=== PATIENT | female | born 1945 | race Caucasian/White ===

== ENCOUNTER 2018-07-01 10:04 | Emergency (ER) | payer OTHER ==
--- OUTSIDE RECORDS SUMMARY | 2018-07-01 10:06 | XMS REPORT | Clinical Summary ---
:1945 Author Organization [facility] Address [address] [place] [address] Care Team Providers Name Role Phone Ximena Lopez DO Primary Care Provider Allergies Active Allergy Reactions Severity Noted Date Comments Diphenhydramine Hcl Other (See Comments) High 03/25/2016 Hallucination Medications Medication Sig Dispensed Refills Start Date End Date Status FOLIC ACID/MV,FE,MIN Take by mouth. 0 Active (CENTRUM ORAL) cyanocobalamin 1000 MCG Take 1,000 mcg 0 Active tablet by mouth daily. 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 HTN (hypertension) 04/09/2016 Post-operative pain 04/09/2016 Anemia 04/09/2016 Electrolyte and fluid disorder 11/19/2015 Esophageal cancer 11/15/2015 Encounters Date Type Specialty Care Team Description 04/13/2018 Hospital Encounter Radiation Oncology Jacques Quintanilla MD 03/23/2018 Hospital Encounter Radiation Oncology Jacques Quintanilla MD 03/02/2018 Hospital Encounter Radiation Oncology Jacques Quintanilla MD 02/24/2018 Orders Only Oncology Joao Malignant neoplasm ARABELLA Bedoya of esophagus, unspecified location (Primary Dx) 02/05/2018 Orders Only Oncology Elke Shepherd MA 02/03/2018 Office Visit Oncology Kory Herbert Malignant neoplasm of esophagus, unspecified location (Primary Dx); MD Marco Esophageal carcinoma 02/03/2018 Hospital Encounter Radiology Kory Herbert Malignant neoplasm MD Marco of cardio-esophageal junction 02/03/2018 Lab Lab Kory Herbert Malignant neoplasm MD Marco of cardio-esophageal junction 12/24/2017 Telephone Oncology Kory Herbert MD 12/17/2017 Telephone Oncology Kory Herbert MD 12/15/2017 Telephone Oncology Kory Herbert MD 12/11/2017 Telephone Oncology Kory Herbert MD 11/10/2017 Hospital Encounter Radiation Oncology Jacques Quintanilla MD 10/14/2017 Hospital Encounter Radiation Oncology Jacques Quintanilla MD 09/11/2017 Orders Only Oncology Joao, Malignant neoplasm ARABELLA Bedoya of cardio-esophageal junction (Primary Dx) 09/10/2017 Office Visit Oncology Kory Herbert Esophageal carcinoma MD Marco (Primary Dx) 09/10/2017 Hospital Encounter Radiology Kory Herbert Malignant neoplasm MD Marco of esophagus, unspecified location 09/10/2017 Lab Lab Kory Hrebert Malignant neoplasm MD Marco of esophagus, unspecified location after 06/30/2017 Family History Medical History Relation Name Comments Breast cancer Maternal Grandmother Relation Name Status Comments Maternal Grandmother Social History Tobacco Use Types Packs/Day Years Used Date Never Smoker Smokeless Tobacco: Never Used Alcohol Use Drinks/Week oz/Week Comments No Sex Assigned at Date Recorded Not on file Job Start Date Occupation Industry Not on file Not on file Not on file Travel History Travel Start Travel End No recent travel history available. Last Filed Vital Signs Vital Sign Reading Time Taken Blood Pressure 132/70 02/03/2018 1:12 PM CDT Pulse 91 02/03/2018 1:12 PM CDT Temperature 35.7 C (96.2 F) 02/03/2018 1:12 PM CDT Respiratory Rate - - Oxygen Saturation - - Inhaled Oxygen Concentration - - Weight 56.7 kg (125 lb) 02/03/2018 1:12 PM CDT Height 162.6 cm (5' 4") 02/03/2018 10:21 AM CDT Body Mass Index 21.46 02/03/2018 1:12 PM CDT Plan of Treatment Date Type Specialty Care Team Description 08/04/2018 Lab Lab Kory Herbert MD [address] [address] 08/04/2018 Appointment Radiology Kory Herbert MD [address] [address] 08/04/2018 Office Visit Oncology Kory Herbert MD [address] [address] Health Maintenance Due Date Last Done Comments BREAST CANCER SCREENING 1997 COLON CANCER SCREENING 1997 SHINGLES VACCINES (1 of 2) 1997 PNEUMOCOCCAL POLYSACCHARIDE VACCINE AGE 65 AND OVER 2012 PNEUMOCOCCAL-13 2012 INFLUENZA VACCINE 01/06/2018 Implants 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 Shelf Model / Identifier Expiration Serial / Date Lot Port Injctbl Smart Port Ct W/ Dtchd Silicon Cath 7.5fr - [id number] - [id number] Implantable ANGIODYNAMICS 10/05/2018 [id number] / Implanted: Qty: 1 on 11/15/2015 by Tomas Love MD [employer] [id number] / or Accessories [id number] Procedures Procedure Name Priority Date/Time Associated Comments Diagnosis TRANSFUSE RED BLOOD Routine 02/10/2018 5:[address] CHEST W CONTRAST Routine 02/03/2018 11:56 Malignant neoplasm Results for this ABDOMEN W WO CONTRAST AM CDT of procedure are in PELVIS W CONTRAST cardio-esophageal the results junction section. ZZESTIMATED GFR Routine 02/03/2018 9:35 Results for this AM CDT procedure are in the results section. HC COMPLETE BLD COUNT Routine 02/03/2018 9:35 Malignant neoplasm Results for this W/AUTO DIFF AM CDT of procedure are in cardio-esophageal the results junction section. URIC ACID LEVEL Routine 02/03/2018 9:35 Malignant neoplasm Results for this AM CDT of procedure are in cardio-esophageal the results junction section. PHOSPHORUS LEVEL Routine 02/03/2018 9:35 Malignant neoplasm Results for this AM CDT of procedure are in cardio-esophageal the results junction section. LDH Routine 02/03/2018 9:35 Malignant neoplasm Results for this AM CDT of procedure are in cardio-esophageal the results junction section. CARCINOEMBRYONIC ANTIGEN Routine 02/03/2018 9:35 Malignant neoplasm Results for this (CEA) AM CDT of procedure are in cardio-esophageal the results junction section. COMPREHENSIVE METABOLIC Routine 02/03/2018 9:35 Malignant neoplasm Results for this PANEL AM CDT of procedure are in cardio-esophageal the results junction section. GGT Routine 02/03/2018 9:35 Malignant neoplasm Results for this AM CDT of procedure are in cardio-esophageal the results junction section. CT CHEST W CONTRAST Routine 09/10/2017 10:39 Malignant neoplasm Results for this ABDOMEN W CONTRAST AM CDT of esophagus, procedure are in PELVIS W CONTRAST unspecified the results location section. ESTIMATED GFR Routine 09/10/2017 9:48 Results for this AM CDT procedure are in the results section. POC CREATININE Routine 09/10/2017 9:48 Results for this AM CDT procedure are in the results section. ZZESTIMATED GFR Routine 09/10/2017 9:01 Results for this AM CDT procedure are in the results section. CARCINOEMBRYONIC ANTIGEN Routine 09/10/2017 9:01 Malignant neoplasm Results for this (CEA) AM CDT of esophagus, procedure are in unspecified the results location section. CBC HEMOGRAM Routine 09/10/2017 9:01 Malignant neoplasm Results for this AM CDT of esophagus, procedure are in unspecified the results location section. PHOSPHORUS LEVEL Routine 09/10/2017 9:01 Malignant neoplasm Results for this AM CDT of esophagus, procedure are in unspecified the results location section. LDH Routine 09/10/2017 9:01 Malignant neoplasm Results for this AM CDT of esophagus, procedure are in unspecified the results location section. GGT Routine 09/10/2017 9:01 Malignant neoplasm Results for this AM CDT of esophagus, procedure are in unspecified the results location section. COMPREHENSIVE METABOLIC Routine 09/10/2017 9:01 Malignant neoplasm Results for this PANEL AM CDT of esophagus, procedure are in unspecified the results location section. URIC ACID LEVEL Routine 09/10/2017 9:01 Malignant neoplasm Results for this AM CDT of esophagus, procedure are in unspecified the results location section. 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 Multiple axial images of the chest, abdomen, and pelvis were obtained following intravenous administration of iodinated contrast. Sagittal and coronal computerized reformatted images were obtained. CT imaging was performed with iterative reconstruction techniques and/or automated exposure control to reduce radiation dose. COMPARISON:To previous examination from 09/10/2017 IMPRESSION: Chest: 1. The patient is status post gastric pull-through. 2.No other hilar or mediastinal abnormality is appreciated. 3.Minimal scarring in the right lung base is present. Minimal atelectatic changes in the left lung base are noted. No worrisome parenchymal abnormality is appreciated in the lungs. Abdomen: 1. The liver and the spleen are normal in appearance. 2.Pancreas is normal in appearance. 3.A small left renal cyst is present. 4.An 8 mm calculus is noted in the lower pole of the left kidney. No evidence of hydronephrosis is present. Pelvis: 1. The appendix is normal in appearance. 2.No bowel distention is appreciated. 3.There is no evidence of pelvic mass, or fluid collection. 4.No bony destructive lesions are appreciated. 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 Multiple axial images of the chest, abdomen, and pelvis were obtained following intravenous administration of iodinated contrast. Sagittal and coronal computerized reformatted images were obtained. CT imaging was performed with iterative reconstruction techniques and/or automated exposure control to reduce radiation dose. COMPARISON: To previous examination from 09/10/2017 IMPRESSION: Chest: 1. The patient is status post gastric pull-through. 2. No other hilar or mediastinal abnormality is appreciated. 3. Minimal scarring in the right lung base is present. Minimal atelectatic changes in the left lung base are noted. No worrisome parenchymal abnormality is appreciated in the lungs. Abdomen: 1. The liver and the spleen are normal in appearance. 2. Pancreas is normal in appearance. 3. A small left renal cyst is present. 4. An 8 mm calculus is noted in the lower pole of the left kidney. No evidence of hydronephrosis is present. Pelvis: 1. The appendix is normal in appearance. 2. No bowel distention is appreciated. 3. There is no evidence of pelvic mass, or fluid collection. 4. No bony destructive lesions are appreciated. [facility]-[id number] Performing Organization Address City/[facility] Phone Number [facility] [address] [place] [address] Estimated GFR (02/03/2018 9:35 AM CDT)Only the most recent of2 resultswithin the time period is included. GFR Non Af Amer 55 (A) mL/min/1.73 m2 [facility] DEPARTMENT OF PATHOLOGY AND GENOMIC MEDICINE GFR Af Amer 66 mL/min/1.73 m2 [facility] DEPARTMENT OF Comment: PATHOLOGY AND GENOMIC Chronic kidney disease: <60 mL/min/1.73m2 MEDICINE Kidney failure: <15 mL/min/1.73m2 The estimated GFR is calculated from the IDMS-traceable Modification of Diet in Renal Disease Equation. The accuracy of the calculation is poor when the creatinine is normal. Calculated values >90 mL/min/1.73m2 are not reported. This equation has not been validated in children (<18 years), women, the elderly (>70 years), or ethnic groups other than Caucasians and Americans. Specimen Plasma specimen Performing Organization Address City/[facility]/Zipcode Phone Number [facility] DEPARTMENT OF PATHOLOGY AND [address] [place] [address] [facility] CBC with platelet and differential (02/03/2018 9:35 AM CDT) WBC 5.75 4.50 - 11.00 k/uL [facility] DEPARTMENT OF PATHOLOGY AND GENOMIC MEDICINE RBC 5.17 4.20 - 5.50 m/uL [facility] DEPARTMENT OF PATHOLOGY AND GENOMIC MEDICINE HGB 13.3 12.0 - 16.0 g/dL [facility] DEPARTMENT OF PATHOLOGY AND GENOMIC MEDICINE HCT 43.3 37.0 - 47.0 % [facility] DEPARTMENT OF PATHOLOGY AND GENOMIC MEDICINE MCV 83.8 82.0 - 100.0 fL [facility] DEPARTMENT OF PATHOLOGY AND GENOMIC MEDICINE MCH 25.7 (L) 27.0 - 34.0 pg [facility] DEPARTMENT OF PATHOLOGY AND GENOMIC MEDICINE MCHC 30.7 (L) 31.0 - 37.0 g/dL [facility] DEPARTMENT OF PATHOLOGY AND GENOMIC MEDICINE RDW - SD 46.6 37.0 - 55.0 fL [facility] DEPARTMENT OF PATHOLOGY AND GENOMIC MEDICINE MPV 11.5 8.8 - 13.2 fL [facility] DEPARTMENT OF PATHOLOGY AND GENOMIC MEDICINE Platelet count 151 150 - 400 k/uL [facility] DEPARTMENT OF PATHOLOGY AND GENOMIC MEDICINE Nucleated RBC 0.00 /100 WBC [facility] DEPARTMENT OF PATHOLOGY AND GENOMIC MEDICINE Neutrophils 74.2 (H) 39.0 - 69.0 % [facility] DEPARTMENT OF PATHOLOGY AND GENOMIC MEDICINE Lymphocytes 13.0 (L) 25.0 - 45.0 % [facility] DEPARTMENT OF PATHOLOGY AND GENOMIC MEDICINE Monocytes 9.4 0.0 - 10.0 % [facility] DEPARTMENT OF PATHOLOGY AND GENOMIC MEDICINE Eosinophils 2.4 0.0 - 5.0 % [facility] DEPARTMENT OF PATHOLOGY AND GENOMIC MEDICINE Basophils 0.7 0.0 - 1.0 % [facility] DEPARTMENT OF PATHOLOGY AND GENOMIC MEDICINE Immature granulocytes 0.3Comment: 0.0 - 1.0 % [facility] DEPARTMENT OF "Immature PATHOLOGY AND GENOMIC granulocytes" MEDICINE (promyelocytes, myelocytes, metamyelocytes) Specimen Blood Performing Organization Address [facility] Services[facility]ofl Phone Number [facility] DEPARTMENT OF PATHOLOGY AND [address] [place] [address] Uric acid level (02/03/2018 9:35 AM CDT)Only the most recent of2 resultswithin the time period is included. Uric acid 3.1 2.4 - 5.7 mg/dL [facility] DEPARTMENT OF PATHOLOGY AND GENOMIC MEDICINE Specimen Plasma specimen Performing Organization Address City/[facility] Servicescode Phone Number [facility] DEPARTMENT OF PATHOLOGY AND [address] [place], [place] [id number] [facility] Phosphorus level (02/03/2018 9:35 AM CDT)Only the most recent of2 resultswithin the time period is included. Phosphorus 2.9 2.4 - 4.5 mg/dL [facility] DEPARTMENT OF PATHOLOGY AND GENOMIC MEDICINE Specimen Plasma specimen Performing Organization Address [facility] Phone Number [facility] DEPARTMENT OF PATHOLOGY AND [address] [place], [place] [phone] [place] [address] LDH (02/03/2018 9:35 AM CDT)Only the most recent of2 resultswithin the time period is included. LDH 161 87 - 225 U/L [facility] DEPARTMENT OF PATHOLOGY AND GENOMIC MEDICINE Specimen Plasma specimen Performing Organization Address [facility] Phone Number [facility] DEPARTMENT OF PATHOLOGY AND [address] [place] [address] GGT (02/03/2018 9:35 AM CDT)Only the most recent of2 resultswithin the time period is included. GGT 80 (H) 0 - 39 U/L [facility] DEPARTMENT OF PATHOLOGY AND GENOMIC MEDICINE Specimen Plasma specimen Performing Organization Address [facility] Phone Number [facility] DEPARTMENT OF PATHOLOGY AND [address] [place] [address] Carcinoembryonic antigen (CEA) (02/03/2018 9:35 AM CDT)Only the most recent of2 resultswithin the time period is included. CEA 2.4 0.0 - 3.8 ng/mL [facility] DEPARTMENT OF PATHOLOGY Comment: AND [facility] MEDICINE Reference range for heavy smokers:0.0 - 5.5 ng/mL The RADHA Willard 8000 CEA immunoassay was used. Results obtained with different assay methods or kits should not be used interchangeably and may be different. Specimen Serum Performing Organization Address [facility] Phone Number [facility] DEPARTMENT OF PATHOLOGY AND [address] [place] [address] Comprehensive metabolic panel (02/03/2018 9:35 AM CDT)Only the most recent of2 resultswithin the time period is included. Sodium 140 135 - 148 mEq/L [facility] DEPARTMENT OF PATHOLOGY AND GENOMIC MEDICINE Potassium 4.1 3.5 - 5.0 mEq/L [facility] DEPARTMENT OF PATHOLOGY AND GENOMIC MEDICINE Chloride 103 98 - 112 mEq/L [facility] DEPARTMENT OF PATHOLOGY AND GENOMIC MEDICINE CO2 25 24 - 31 mEq/L [facility] DEPARTMENT OF PATHOLOGY AND GENOMIC MEDICINE Anion gap 12@ANIO 7 - 15 mEq/L [facility] DEPARTMENT OF PATHOLOGY AND GENOMIC MEDICINE BUN 16 8 - 23 mg/dL [facility] DEPARTMENT OF PATHOLOGY AND GENOMIC MEDICINE Creatinine 1.0 (H) 0.5 - 0.9 mg/dL [facility] DEPARTMENT OF PATHOLOGY AND GENOMIC MEDICINE Glucose 96 65 - 99 mg/dL [facility] DEPARTMENT OF PATHOLOGY AND GENOMIC MEDICINE Calcium 9.8 8.8 - 10.2 mg/dL [facility] DEPARTMENT OF PATHOLOGY AND GENOMIC MEDICINE Protein 8.8 (H) 6.3 - 8.3 g/dL [facility] DEPARTMENT OF Comment: PATHOLOGY AND GENOMIC [place] 4.6-7.0 g/dL MEDICINE 1 week 4.4-7.6 g/dL 7 months-1year5.1-7.3 g/dL 1-2 years5.6-7.5 g/dL >3 years6.0-8.0 g/dL 18-150 6.3-8.3 g/dL Albumin 3.4 (L) 3.5 - 5.0 g/dL [facility] DEPARTMENT OF PATHOLOGY AND GENOMIC MEDICINE A/G ratio 0.6 (L) 0.7 - 3.8 [facility] DEPARTMENT OF PATHOLOGY AND GENOMIC MEDICINE Alkaline phosphatase 176 (H) 35 - 104 U/L [facility] DEPARTMENT OF PATHOLOGY AND GENOMIC MEDICINE AST 34 10 - 35 U/L [facility] DEPARTMENT OF PATHOLOGY AND GENOMIC MEDICINE ALT 20 5 - 50 U/L [facility] DEPARTMENT OF PATHOLOGY AND GENOMIC MEDICINE Total bilirubin 0.6 0.0 - 1.2 mg/dL [facility] DEPARTMENT OF PATHOLOGY AND GENOMIC MEDICINE Specimen Plasma specimen Performing Organization Address City/State/Zipcode Phone Number [facility] DEPARTMENT OF PATHOLOGY AND [address] [place] [address] [facility] CT Chest W Contrast Abdomen W Contrast Pelvis W Contrast (09/10/2017 10:39 AM CDT) Narrative Performed At PROCEDURE:CT CHEST W CONTRAST ABDOMEN W CONTRAST PELVIS W CONTRAST RADIANT CLINICAL HISTORY:C15.9 Malignant neoplasm of esophagusunspecified, ca esophagus COMPARISON:May 21, 2017 TECHNIQUE: Contiguous 5 mm axial images were obtained of the lung apices to the pubic symphysis following injection of intravenous iodinated contrast media without adverse reaction on a multidetector CT scanning using helical scanning technique followed by 2-D sagittal and coronal reconstruction.Oral contrast was given without adverse reaction.. The dose length product for this procedure was 591 mGy-cm. CT imaging was performed with iterative reconstruction technique and/or automated exposure control to reduce radiation dose. FINDINGS: CT CHEST- 1. Lung parenchymal window settings demonstrate persistent linear scarring is noted in the right lower lobe unchanged. No lung parenchymal nodules or masses are identified. Minimal bronchiectasis is present in the upper lobes. 2. Mediastinal window settings demonstrate no supraclavicular, axillary, or hilar lymphadenopathy is seen. A precarinal lymph node is present and measures 2 cm x 1.3 cm. A few subcentimeter mediastinal lymph nodes are seen. Dilatation of the esophagus with the filling defects are noted with the distention extending to the GE junction. The esophagus is slightly more distended than on the prior exam. Surgical lexis are seen around the distal esophagus consistent with the distal esophagectomy and gastric pull-through. The heart is enlarged as before. No pericardial effusion is seen. No pleural effusions are noted. 3. Sagittal and coronal reconstructions demonstrate no additional abnormality. 4. Bone window settings demonstrate no osteolytic or osteoblastic lesions. CT ABDOMEN- 1. The attenuation of the liver is decreased relative to that of the spleen consistent with diffuse fatty infiltration. No focal lesions are identified in the liver. A cortical cyst is seen in the lateral aspect of lower pole of left kidney and measures 1.9 cm diameter. Multiple clustered calculi are seen in the lower pole of left kidney with the largest calculus measuring 8.4 mm x 4.7 mm. Bilateral UP junction narrowing is seen. Otherwise, no abnormality of the intra-abdominal solid organs is seen. 2. The opacified small bowel is unremarkable. No dilatation or wall thickening is seen. The colon is not opacified. No dilatation or paracolic inflammation is seen. No dilatation of the small or large bowel is seen. Few diverticula are present in the sigmoid colon. No evidence of acute diverticulitis is seen. The appendix isvisualized and normal. 3. No retroperitoneal lymphadenopathy, mesenteric masses, or intra-abdominal fluid collections are seen. 4. No abnormality of the aorta or IVC is seen. The gallbladderis surgically absent 5. Sagittal and coronal reconstructions demonstrate no additional abnormality. CT PELVIS- 1. No pelvic masses, fluid collections, or lymphadenopathy is seen. No inguinal lymphadenopathy is noted. 2. Bone window settings demonstrate small bone islands in the left sacrum and posterior left iliac bone. These were present on the prior examination. IMPRESSION: Abnormal study. Slight interval distention of the esophagus compared to the prior examination and could be related to reflux. Otherwise unchanged. No evidence of metastatic disease to the chest, abdomen, or pelvis. Persistent nonobstructing cluster of left lower pole renal calculi some of which could be new. [facility]-[id number] . Procedure Note Hm Interface, Radiology Results Incoming - 09/10/2017 11:14 AM CDT PROCEDURE: CT CHEST W CONTRAST ABDOMEN W CONTRAST PELVIS W CONTRAST CLINICAL HISTORY: C15.9 Malignant neoplasm of esophagus unspecified, ca esophagus COMPARISON: May 21, 2017 TECHNIQUE: Contiguous 5 mm axial images were obtained of the lung apices to the pubic symphysis following injection of intravenous iodinated contrast media without adverse reaction on a multidetector CT scanning using helical scanning technique followed by 2-D sagittal and coronal reconstruction.Oral contrast was given without adverse reaction.. The dose length product for this procedure was 591 mGy-cm. CT imaging was performed with iterative reconstruction technique and/or automated exposure control to reduce radiation dose. FINDINGS: CT CHEST- 1. Lung parenchymal window settings demonstrate persistent linear scarring is noted in the right lower lobe unchanged. No lung parenchymal nodules or masses are identified. Minimal bronchiectasis is present in the upper lobes. 2. Mediastinal window settings demonstrate no supraclavicular, axillary, or hilar lymphadenopathy is seen. A precarinal lymph node is present and measures 2 cm x 1.3 cm. A few subcentimeter mediastinal lymph nodes are seen. Dilatation of the esophagus with the filling defects are noted with the distention extending to the GE junction. The esophagus is slightly more distended than on the prior exam. Surgical lexis are seen around the distal esophagus consistent with the distal esophagectomy and gastric pull-through. The heart is enlarged as before. No pericardial effusion is seen. No pleural effusions are noted. 3. Sagittal and coronal reconstructions demonstrate no additional abnormality. 4. Bone window settings demonstrate no osteolytic or osteoblastic lesions. CT ABDOMEN- 1. The attenuation of the liver is decreased relative to that of the spleen consistent with diffuse fatty infiltration. No focal lesions are identified in the liver. A cortical cyst is seen in the lateral aspect of lower pole of left kidney and measures 1.9 cm diameter. Multiple clustered calculi are seen in the lower pole of left kidney with the largest calculus measuring 8.4 mm x 4.7 mm. Bilateral UP junction narrowing is seen. Otherwise, no abnormality of the intra-abdominal solid organs is seen. 2. The opacified small bowel is unremarkable. No dilatation or wall thickening is seen. The colon is not opacified. No dilatation or paracolic inflammation is seen. No dilatation of the small or large bowel is seen. Few diverticula are present in the sigmoid colon. No evidence of acute diverticulitis is seen. The appendix is visualized and normal. 3. No retroperitoneal lymphadenopathy, mesenteric masses, or intra-abdominal fluid collections are seen. 4. No abnormality of the aorta or IVC is seen. The gallbladder is surgically absent 5. Sagittal and coronal reconstructions demonstrate no additional abnormality. CT PELVIS- 1. No pelvic masses, fluid collections, or lymphadenopathy is seen. No inguinal lymphadenopathy is noted. 2. Bone window settings demonstrate small bone islands in the left sacrum and posterior left iliac bone. These were present on the prior examination. IMPRESSION: Abnormal study. Slight interval distention of the esophagus compared to the prior examination and could be related to reflux. Otherwise unchanged. No evidence of metastatic disease to the chest, abdomen, or pelvis. Persistent nonobstructing cluster of left lower pole renal calculi some of which could be new. [facility]-[id number] . Performing Organization Address City/[facility]/Zipcode Phone Number [facility] [address] [place] [address] Estimated GFR (09/10/2017 9:48 AM CDT) GFR Non Af Amer 62 mL/min/1.73 m2 [facility] DEPARTMENT OF PATHOLOGY AND GENOMIC MEDICINE GFR Af Amer 75 mL/min/1.73 m2 [facility] DEPARTMENT OF Comment: PATHOLOGY AND GENOMIC Chronic kidney disease: <60 mL/min/1.73m2 MEDICINE Kidney failure: <15 mL/min/1.73m2 The estimated GFR is calculated from the IDMS-traceable Modification of Diet in Renal Disease Equation. The accuracy of the calculation is poor when the creatinine is normal. Calculated values >90 mL/min/1.73m2 are not reported. This equation has not been validated in children (<18 years), women, the elderly (>70 years), or ethnic groups other than Caucasians and Americans. Specimen Blood Performing Organization Address City/[facility]/Zipcode Phone Number [facility] DEPARTMENT OF PATHOLOGY AND [address] [place] [address] [facility] POC creatinine (09/10/2017 9:48 AM CDT) POC creatinine 0.9 0.5 - 0.9 mg/dl [facility] DEPARTMENT OF PATHOLOGY Comment: AND [employer] MEDICINE Meter ID: [id number] Drawer Waxer: Micah Sheikh Specimen Blood Performing Organization Address City/State/Zipcode Phone Number [facility] DEPARTMENT OF PATHOLOGY AND [address] [place] [address] GENOMIC MEDICINE CBC hemogram (09/10/2017 9:01 AM CDT) WBC 5.28 4.50 - 11.00 k/uL [facility] DEPARTMENT OF PATHOLOGY AND GENOMIC MEDICINE RBC 5.06 4.20 - 5.50 m/uL [facility] DEPARTMENT OF PATHOLOGY AND GENOMIC MEDICINE HGB 12.9 12.0 - 16.0 g/dL [facility] DEPARTMENT OF PATHOLOGY AND GENOMIC MEDICINE HCT 41.7 37.0 - 47.0 % [facility] DEPARTMENT OF PATHOLOGY AND GENOMIC MEDICINE MCV 82.4 82.0 - 100.0 fL [facility] DEPARTMENT OF PATHOLOGY AND GENOMIC MEDICINE MCH 25.5 (L) 27.0 - 34.0 pg [facility] DEPARTMENT OF PATHOLOGY AND GENOMIC MEDICINE MCHC 30.9 (L) 31.0 - 37.0 g/dL [facility] DEPARTMENT OF PATHOLOGY AND GENOMIC MEDICINE RDW - SD 48.3 37.0 - 55.0 fL [facility] DEPARTMENT OF PATHOLOGY AND GENOMIC MEDICINE MPV 11.2 8.8 - 13.2 fL [facility] DEPARTMENT OF PATHOLOGY AND GENOMIC MEDICINE Platelet count 140 (L) 150 - 400 k/uL [facility] DEPARTMENT OF PATHOLOGY AND GENOMIC MEDICINE Nucleated RBC 0.00 /100 WBC [facility] DEPARTMENT OF PATHOLOGY AND GENOMIC MEDICINE Specimen Blood Performing Organization Address City/State/Zipcode Phone Number [facility] DEPARTMENT OF PATHOLOGY AND [address] [place] [address] [employer] MEDICINE after 06/30/2017 Insurance Payer Benefit Plan / Group Subscriber ID Type Phone Address MEDICARE MEDICARE PART A AND B xxxxxxxxxx Medicare [place], [place] [employer] AND xxxxxxxxx Commercial CASUALTY CASUALTY Advance Directives Patient has advance care planning documents on file. For more information, please contact:Eros Helton[address] [place] [address]
[2018-07-01 11:57] LABS: Absolute Lymphocytes (CBC) 0.7 K/uL (0.7-4.9); Absolute Monocytes 0.8 K/uL (0.1-1.3); Absolute Neutrophil 5.5 K/uL (1.8-8.0); Basophils % 0.3 % (0-1.3); Eosinophils % 1.1 % (0-4.4); Hematocrit 40.9 % (36.0-45.0); Lymphocytes % 9.8 % (15.3-44.8); MPV 9.3 fL (7.6-11.3); Monocytes % 11.1 % (3.3-12.3); RBC Red Blood Cell Count 5.18 M/uL (3.86-4.86)
[2018-07-01 12:10] LABS: Albumin 3.1 g/dL (3.4-5.0); Bilirubin Direct 0.2 mg/dL (0-0.2); Bilirubin Total 0.6 mg/dL (0.2-1.0); Potassium 3.6 mmol/L (3.5-5.1); Protein, Total 8.5 g/dL (6.4-8.2)
[2018-07-01] MEDS ORDERED: NA CHLORIDE 0.9% 250 ML ONE (12:24)
--- NOTE | 2018-07-01 12:50 | RAD REPORT ---
EXAM DESCRIPTION: CTAbdomen Pelvis W Contrast - 07/01/2018 12:36 pm CLINICAL HISTORY: Abdominal pain. VAGINAL BLEEDING COMPARISON: No comparisonsChest Abdomen Pelvis W Cont dated 11/06/2016 TECHNIQUE: Biphasic CT imaging of the abdomen and pelvis was performed with 100 ml non-ionic IV cont rast. All CT scans are performed using dose optimization technique as appropriate and may include automated exposure control or mA/KV adjustment according to patient size. FINDINGS: Mild linear opacities in both lung bases most compatible with subsegmental atelectasis.Mod erate hiatal hernia is present. The liver demonstrates no focal mass or biliary dilatation. Cholecystectomy clips are seen. The splee n is mildly prominent. Mild pancreatic atrophy is seen. The adrenal glands are normal. A cyst is pres ent in the inferolateral cortex of left kidney measuring 20 mm. Small inferior left renal calculi are seen the largest measuring about 6-7 mm without hydronephrosis. No bowel obstruction, free air, free fluid or abscess. The appendix is normal. No evidence of signi ficant lymphadenopathy. No suspicious bony findings. IMPRESSION: No acute intra-abdominal or pelvic finding. Left nephrolithiasis.
[2018-07-01 13:34] LABS: Urine Blood TRACE (NEG); Urine Glucose TRACE (NEG); Urine Protein 1+ (NEG)
--- NOTE | 2018-07-01 13:39 | EDPHYS ---
Physician Documentation [facility] Name: Vera Parker Age: 73 yrs Sex: Female : 1945 Arrival Date: 07/01/2018 Time: 10:06 Bed 8 Private MD: Ximena Lopez H ED Physician Fab Torres HPI: 07/01 18:08 This 73 yrs old Female presents to ER via Ambulatory with complaints of kdr Vaginal Bleeding, Weakness. 18:08 The patient presents with vaginal bleeding that is light. kdr 18:10 Onset: The symptoms/episode began/occurred yesterday. Modifying factors: The symptoms kdr are alleviated by nothing, the symptoms are aggravated by nothing. Historical: - Allergies: 10:35 Benadryl (Hallucinations); tw2 - Home Meds: 10:35 None [Active]; tw2 - PMHx: 10:35 esophageal cancer; Hypertension; Chemotherapy started December,; Radiation tx tw2 completed January 25, 2016; - PSHx: 10:35 Ablation (uterine); G-tube (removed Jun 2016); J-tube (removed Jun 2016); Port-a-cath tw2 (Jun 2016); Lump removed from breast; - Immunization history:: Adult Immunizations. - Social history:: Smoking status: . - Ebola Screening: : Patient denies travel to an Ebola-affected area in the 21 days before illness onset. ROS: 18:39 Constitutional: Negative for fever, chills, and weight loss, Eyes: Negative for injury, kdr pain, redness, and discharge, ENT: Negative for injury, pain, and discharge, Neck: Negative for injury, pain, and swelling, Cardiovascular: Negative for chest pain, palpitations, and edema, Respiratory: Negative for shortness of breath, cough, wheezing, and pleuritic chest pain, Abdomen/GI: Negative for abdominal pain, nausea, vomiting, diarrhea, and constipation, Back: Negative for injury and pain, MS/Extremity: Negative for injury and deformity, Neuro: Negative for headache, weakness, numbness, tingling, and seizure activity. Psych: Negative for depression, anxiety, suicide ideation, homicidal ideation, and hallucinations, Allergy/Immunology: Negative for hives, rash, and allergies, Endocrine: Negative for neck swelling, polydipsia, polyuria, polyphagia, and marked weight changes, Hematologic/Lymphatic: Negative for swollen nodes, abnormal bleeding, and unusual bruising. 18:39 : Positive for vaginal bleeding. 18:39 Skin: Positive for Indurated tissue on right medial buttock. Exam: 18:39 Constitutional: This is a well developed, well nourished patient who is awake, alert, kdr and in no acute distress. Head/Face: Normocephalic, atraumatic. Eyes: Pupils equal round and reactive to light, extra-ocular motions intact. Lids and lashes normal. Conjunctiva and sclera are non-icteric and not injected. Cornea within normal limits. Periorbital areas with no swelling, redness, or edema. Neck: Trachea midline, no thyromegaly or masses palpated, and no cervical lymphadenopathy. Supple, full range of motion without nuchal rigidity, or vertebral point tenderness. No Meningismus. Chest/axilla: Normal chest wall appearance and motion. Nontender with no deformity. No lesions are appreciated. Cardiovascular: Regular rate and rhythm with a normal S1 and S2. No gallops, murmurs, or rubs. Normal PMI, no JVD. No pulse deficits. Respiratory: Lungs have equal breath sounds bilaterally, clear to auscultation and percussion. No rales, rhonchi or wheezes noted. No increased work of breathing, no retractions or nasal flaring. Abdomen/GI: Soft, non-tender, with normal bowel sounds. No distension or tympany. No guarding or rebound. No evidence of tenderness throughout. Back: No spinal tenderness. No costovertebral tenderness. Full range of motion. Female : Normal external genitalia. 18:39 : Pelvic Exam: External exam: is normal, Speculum exam: normal findings, no bleeding is noted, the nurse was present for the exam. 18:39 Skin: abscess, that is small, of the right gluteus qian - at cleft adjacent to rectum but not in the rectum. Vital Signs: 10:30 Pulse 128; tw2 10:31 BP 122 / 77; Pulse 116; Resp 18; Temp 98.2(O); Pulse Ox 97% on R/A; Weight 56.25 kg tw2 (R); Height 5 ft. 3 in. (160.02 cm) (R); Pain 0/10; 12:29 BP 149 / 78; Pulse 98; Resp 14; Pulse Ox 99% ; bp 13:30 BP 151 / 88; Pulse 91; Resp 16; Pulse Ox 100% ; ca1 10:31 Body Mass Index 21.97 (56.25 kg, 160.02 cm) tw2 MDM: 13:39 Patient medically screened. kdr 18:39 Data reviewed: vital signs, nurses notes, lab test result(s). Counseling: I had a kdr detailed discussion with the patient and/or guardian regarding: the historical points, exam findings, and any diagnostic results supporting the discharge/admit diagnosis, lab results, radiology results, the need for outpatient follow up. 07/01 11:11 Order name: Basic Metabolic Panel; Complete Time: 12:40 [facility] 07/01 11:11 Order name: CBC with Diff [facility] 07/01 11:11 Order name: Creatinine for Radiology; Complete Time: 12:40 [facility] 07/01 11:11 Order name: Hepatic Function; Complete Time: 12:40 [facility] 07/01 11:11 Order name: Type And Screen; Complete Time: 12:40 [facility] 07/01 11:11 Order name: Urine Culture [facility] 07/01 11:11 Order name: IV Saline Lock; Complete Time: 11:33 [facility] 07/01 11:11 Order name: Labs collected and sent; Complete Time: 11:33 [facility] 07/01 11:11 Order name: CT Abd/Pelvis - W/Contrast [facility] 07/01 11:11 Order name: Urine Dipstick-Ancillary (obtain specimen): Cath UA - clean well!; Complete kdr Time: 12:14 07/01 11:11 Order name: Pelvic Exam Setup; Complete Time: 11:32 [facility] 07/01 12:17 Order name: Urine Dipstick--Ancillary (enter results) eb Administered Medications: 11:30 Drug: NS 0.9% 250 ml Route: IV; Rate: bolus; Site: right forearm; bp 13:58 Follow up: IV Status: Completed infusion; IV Intake: 250ml ca1 Disposition: 07/01/18 13:39 Discharged to Home. Impression: Cellulitis and Abscess of the Right Buttock. - Condition is Stable. - Discharge Instructions: Skin Abscess, Opew-pu-[id number], Cellulitis, Adult, [id number]. - Prescriptions for clindamycin palmitate HCl 75 mg/5 mL Oral recon soln - take 20 milliliter by ORAL route every 6 hours; 560 milliliter. sulfamethoxazole- trimethoprim 200-40 mg/5 mL Oral Suspension - take 10 milliliter by ORAL route every 12 hours for 10 days; 200 milliliter. - Medication Reconciliation Form, Thank You Letter, Antibiotic Education form. - Follow up: Jessica, DO Ximena; When: 2 - 3 days; Reason: If symptoms return, Further diagnostic work-up, Recheck today's complaints, Continuance of care, Re-evaluation by your physician. - Problem is new. - Symptoms have improved. Signatures: Dispatcher [employer] EDMS Fab Torres MD MD kdr Nena Faye RN RN tw2 Fortunato Drake RN RN bp Johnnie, Leticia FELICIANO ca1 Corrections: (The following items were deleted from the chart) 14:26 13:39 07/01/2018 13:39 Discharged to Home. Impression: Cellulitis and Abscess of the bp Right Buttock. Condition is Stable. Forms are Medication Reconciliation Form, Thank You Letter, Antibiotic Education, Prescription Opioid Use. Follow up: Ximena Lopez; When: 2 - 3 days; Reason: If symptoms return, Further diagnostic work-up, Recheck today's complaints, Continuance of care, Re-evaluation by your physician. Problem is new. Symptoms have improved. kdr
--- NOTE | 2018-07-01 13:39 | ER ---
Nurse's Notes [facility] Name: Vera Parker Age: 73 yrs Sex: Female : 1945 Arrival Date: 07/01/2018 Time: 10:06 Bed 8 Private MD: Ximena Lopez H Diagnosis: Cellulitis and Abscess of the Right Buttock Presentation: 07/01 10:30 Presenting complaint: Patient states: i am having vaginal bleeding that started tw2 yesterday, no clots, no pain, bright red blood on my depends and bright red blood in toilet. Transition of care: patient was not received from another setting of care. Onset of symptoms was July 01, 2018. Risk Assessment: Do you want to hurt yourself or someone else? Patient reports no desire to harm self or others. Initial Sepsis Screen: Does the patient meet any 2 criteria? No. Patient's initial sepsis screen is negative. Does the patient have a suspected source of infection? No. Patient's initial sepsis screen is negative. Care prior to arrival: None. 10:30 Method Of Arrival: Ambulatory tw2 10:30 Acuity: YEYO 3 tw2 Triage Assessment: 10:35 General: Appears in no apparent distress. well groomed, Behavior is calm, cooperative, tw2 appropriate for age. Pain: Denies pain. : Reports vaginal bleeding that is bright red. Historical: - Allergies: 10:35 Benadryl (Hallucinations); tw2 - Home Meds: 10:35 None [Active]; tw2 - PMHx: 10:35 esophageal cancer; Hypertension; Chemotherapy started December,; Radiation tx tw2 completed January 25, 2016; - PSHx: 10:35 Ablation (uterine); G-tube (removed Jun 2016); J-tube (removed Jun 2016); Port-a-cath tw2 (Jun 2016); Lump removed from breast; - Immunization history:: Adult Immunizations. - Social history:: Smoking status: . - Ebola Screening: : Patient denies travel to an Ebola-affected area in the 21 days before illness onset. Screenin:46 Abuse screen: Denies threats or abuse. Denies injuries from another. Nutritional bp screening: No deficits noted. Tuberculosis screening: No symptoms or risk factors identified. Fall Risk None identified. Assessment: 10:45 General: Appears in no apparent distress. comfortable, Behavior is calm, cooperative, bp appropriate for age. Pain: Denies pain. Neuro: Reports weakness GENERALIZED. Cardiovascular: Rhythm is sinus tachycardia. Respiratory: Airway is patent Respiratory effort is even, unlabored, Respiratory pattern is regular, symmetrical. GI: No signs and/or symptoms were reported involving the gastrointestinal system. : VAGINAL BLEEDING. : Vaginal discharge is bloody. EENT: No deficits noted. Derm: No deficits noted. Musculoskeletal: Circulation, motion, and sensation intact. Range of motion: intact in all extremities. 12:30 Reassessment: PELVIC COMPLETED, PT TO CT WITH [facility] ATTORNEY. bp 14:25 Reassessment: PT D/C HOME AMBULATORY WITH FAMILY, DX WITH ABSCESS AND CELLULITIS. bp Vital Signs: 10:30 Pulse 128; tw2 10:31 BP 122 / 77; Pulse 116; Resp 18; Temp 98.2(O); Pulse Ox 97% on R/A; Weight 56.25 kg tw2 (R); Height 5 ft. 3 in. (160.02 cm) (R); Pain 0/10; 12:29 BP 149 / 78; Pulse 98; Resp 14; Pulse Ox 99% ; bp 13:30 BP 151 / 88; Pulse 91; Resp 16; Pulse Ox 100% ; ca1 10:31 Body Mass Index 21.97 (56.25 kg, 160.02 cm) tw2 ED Course: 10:06 Patient arrived in ED. dl4 10:07 Ximena Lopez DO is Private Physician. dl4 10:31 Triage completed. tw2 10:35 Arm band placed on. tw2 10:41 Fortunato Drake, BRADEN is Primary Nurse. bp 10:45 Fab Torres MD is Attending Physician. kdr 10:46 Patient has correct armband on for positive identification. Placed in gown. Bed in low bp position. Call light in reach. Side rails up X2. Adult w/ patient. 10:53 Patient has correct armband on for positive identification. Placed in gown. Bed in low mh5 position. Call light in reach. Side rails up X 1. Adult w/ patient. Warm blanket given. school lunch monitor on. Pulse ox on. NIBP on. 11:28 Inserted saline lock: 22 gauge in right forearm, using aseptic technique. Blood bp collected. 12:08 Urine collected: straight cath specimen, clear, Amount Returned: 60mL. dh3 12:36 CT Abd/Pelvis - W/Contrast In Process Unspecified. EDMS 13:38 Jessica MacarenaOlga LidiaanDO kenia is Referral Physician. kdr 13:58 No provider procedures requiring assistance completed. IV discontinued, intact, ca1 bleeding controlled, No redness/swelling at site. Pressure dressing applied. Administered Medications: 11:30 Drug: NS 0.9% 250 ml Route: IV; Rate: bolus; Site: right forearm; bp 13:58 Follow up: IV Status: Completed infusion; IV Intake: 250ml ca1 Intake: 13:58 IV: 250ml; Total: 250ml. ca1 Outcome: 13:39 Discharge ordered by MD. kdr 14:25 Discharged to home ambulatory, with family. bp 14:25 Condition: stable 14:25 Discharge instructions given to patient, family, Instructed on discharge instructions, follow up and referral plans. medication usage, Demonstrated understanding of instructions, follow-up care, medications, Prescriptions given X 2. 14:26 Patient left the ED. bp Signatures: Dispatcher [employer] EDMS Fab Torres MD MD kdr Nena Faye, RN RN tw2 Adriana Olmstead Varsha Howard 3 Fortunato Drake, RN RN Gurjit Rucker 4 Letciia Blair RN RN ca1
[2018-07-01 14:55] VITALS: TEMP 98.2
[2018-07-01 14:58] VITALS: BP 151/88; O2SAT 100
== END 2018-07-01 14:26 | disposition home or self-care (01) ==
LOC: ER 10:04
DX: L03.317 Cellulitis of buttock (principal); I10 Essential (primary) hypertension; Z85.01 Personal history of malignant neoplasm of esophagus; Z88.8 Allergy status to other drugs, medicaments and biological substances
CPT/HCPCS: 36415; 74177; 80048; 80076; 81003; 85025; 86850; 86900; 86901; 87086; 96360; 96361; 99284; Q9967; 87088

== ENCOUNTER 2018-07-09 19:20 | Emergency (ER) | payer OTHER ==
--- OUTSIDE RECORDS SUMMARY | 2018-07-09 19:23 | XMS REPORT | Clinical Summary ---
:1945 Author Organization [facility] Address [address] [place] [address] Care Team Providers Name Role Phone Ximena [...] of cardio-esophageal junction 12/24/2017 Telephone Oncology Kory Herbret MD 12/17/2017 Telephone Oncology Kory Herbert MD [...] esophagus, unspecified location 09/10/2017 Lab Lab Kory Herbert Malignant neoplasm MD Marco of esophagus, unspecified location after 07/08/2017 Family History Medical History Relation Name Comments [...] Lab Lab Kory Herbert MD [address] [address] 08/04/2018 Appointment Radiology Kory Herbert MD [address] [address] 08/04/2018 Office Visit Oncology Kory Herbert MD [address] [address] Health Maintenance Due Date Last Done Comments BREAST CANCER SCREENING 1997 COLON CANCER SCREENING 1997 SHINGLES VACCINES (1 of 2) 1997 PNEUMOCOCCAL POLYSACCHARIDE VACCINE AGE 65 AND OVER 2012 PNEUMOCOCCAL-13 2012 INFLUENZA VACCINE 01/06/2018 Implants Implanted Type Area Junior Linux Administrator Device Shelf Model / Identifier Expiration Serial / Date Lot Port Injctbl Smart Port Ct W/ Dtchd Silicon Cath 7.5fr - [id number] - [id number] Implantable ANGIODYNAMICS 10/05/2018 [id number] / Implanted: Qty: 1 on 11/15/2015 by Tomas Love MD [employer] [id number] / or Accessories [id number] Procedures Procedure Name Priority Date/Time Associated Comments [...] in unspecified the results location section. after 07/08/2017 Results Transfuse RBC (02/10/2018 5:27 PM CDT)CT [...] collection. 4.No bony destructive lesions are appreciated. [facility]-[id number] Procedure Note Interface, Radiology Results Incoming - [...] 4. No bony destructive lesions are appreciated. [facility]-[id number] Performing Organization Address City/[facility] Phone Number [facility] [address] [place] [address] Estimated GFR (02/03/2018 9:35 AM CDT)Only the most recent of2 resultswithin the time period is included. GFR Non Af Amer 55 (A) mL/min/1.73 m2 [facility] DEPARTMENT OF PATHOLOGY AND GENOMIC MEDICINE GFR Af Amer 66 mL/min/1.73 m2 [facility] DEPARTMENT OF Comment: PATHOLOGY AND GENOMIC Chronic [...] Americans. Specimen Plasma specimen Performing Organization Address City/[facility]/Zipcode Phone Number [facility] DEPARTMENT OF PATHOLOGY AND [address] [place] [address] [facility] CBC with platelet and differential (02/03/2018 9:35 AM CDT) WBC 5.75 4.50 - 11.00 k/uL [facility] DEPARTMENT OF PATHOLOGY AND GENOMIC MEDICINE RBC 5.17 4.20 - 5.50 m/uL [facility] DEPARTMENT OF PATHOLOGY AND GENOMIC MEDICINE HGB 13.3 12.0 - 16.0 g/dL [facility] DEPARTMENT OF PATHOLOGY AND GENOMIC MEDICINE HCT 43.3 37.0 - 47.0 % [facility] DEPARTMENT OF PATHOLOGY AND GENOMIC MEDICINE MCV 83.8 82.0 - 100.0 fL [facility] DEPARTMENT OF PATHOLOGY AND GENOMIC MEDICINE MCH 25.7 (L) 27.0 - 34.0 pg [facility] DEPARTMENT OF PATHOLOGY AND GENOMIC MEDICINE MCHC 30.7 (L) 31.0 - 37.0 g/dL [facility] DEPARTMENT OF PATHOLOGY AND GENOMIC MEDICINE RDW - SD 46.6 37.0 - 55.0 fL [facility] DEPARTMENT OF PATHOLOGY AND GENOMIC MEDICINE MPV 11.5 8.8 - 13.2 fL [facility] DEPARTMENT OF PATHOLOGY AND GENOMIC MEDICINE Platelet count 151 150 - 400 k/uL [facility] DEPARTMENT OF PATHOLOGY AND GENOMIC MEDICINE Nucleated RBC 0.00 /100 WBC [facility] DEPARTMENT OF PATHOLOGY AND GENOMIC MEDICINE Neutrophils 74.2 (H) 39.0 - 69.0 % [facility] DEPARTMENT OF PATHOLOGY AND GENOMIC MEDICINE Lymphocytes 13.0 (L) 25.0 - 45.0 % [facility] DEPARTMENT OF PATHOLOGY AND GENOMIC MEDICINE Monocytes 9.4 0.0 - 10.0 % [facility] DEPARTMENT OF PATHOLOGY AND GENOMIC MEDICINE Eosinophils 2.4 0.0 - 5.0 % [facility] DEPARTMENT OF PATHOLOGY AND GENOMIC MEDICINE Basophils 0.7 0.0 - 1.0 % [facility] DEPARTMENT OF PATHOLOGY AND GENOMIC MEDICINE Immature granulocytes 0.3Comment: 0.0 - 1.0 % [facility] DEPARTMENT OF "Immature PATHOLOGY AND GENOMIC granulocytes" MEDICINE (promyelocytes, myelocytes, metamyelocytes) Specimen Blood Performing Organization Address [facility] Phone Number [facility] DEPARTMENT OF PATHOLOGY AND [address] [place] [address] Uric acid level (02/03/2018 9:35 AM CDT)Only the most recent of2 resultswithin the time period is included. Uric acid 3.1 2.4 - 5.7 mg/dL [facility] DEPARTMENT OF PATHOLOGY AND GENOMIC MEDICINE Specimen Plasma specimen Performing Organization Address City/[facility] Phone Number [facility] DEPARTMENT OF PATHOLOGY AND [address] [place], [place] [id number] [facility] Phosphorus level (02/03/2018 9:35 AM CDT)Only the most recent of2 resultswithin the time period is included. Phosphorus 2.9 2.4 - 4.5 mg/dL [facility] DEPARTMENT OF PATHOLOGY AND GENOMIC MEDICINE Specimen Plasma specimen Performing Organization Address [facility] Phone Number [facility] DEPARTMENT OF PATHOLOGY AND [address] [place], [place] [id number] [place] [address] LDH (02/03/2018 9:35 AM CDT)Only the most recent of2 resultswithin the time period is included. LDH 161 87 - 225 U/L [facility] DEPARTMENT OF PATHOLOGY AND GENOMIC MEDICINE Specimen Plasma specimen Performing Organization Address [facility] Phone Number [facility] DEPARTMENT OF PATHOLOGY AND [address] [place] [address] GGT (02/03/2018 9:35 AM CDT)Only the most recent of2 resultswithin the time period is included. GGT 80 (H) 0 - 39 U/L [facility] DEPARTMENT OF PATHOLOGY AND GENOMIC MEDICINE Specimen Plasma specimen Performing Organization Address [facility] Phone Number [facility] DEPARTMENT OF PATHOLOGY AND [address] [place] [address] Carcinoembryonic antigen (CEA) (02/03/2018 9:35 AM CDT)Only the most recent of2 resultswithin the time period is included. CEA 2.4 0.0 - 3.8 ng/mL [facility] DEPARTMENT OF PATHOLOGY Comment: AND [facility] MEDICINE Reference range for heavy smokers:0.0 - 5.5 ng/mL The RADHA [place] 8000 CEA immunoassay was used. Results obtained with different assay methods or kits should not be used interchangeably and may be different. Specimen Serum Performing Organization Address [facility] Phone Number [facility] DEPARTMENT OF PATHOLOGY AND [address] [place] [address] Comprehensive metabolic panel (02/03/2018 9:35 AM CDT)Only the most recent of2 resultswithin the time period is included. Sodium 140 135 - 148 mEq/L [facility] DEPARTMENT OF PATHOLOGY AND GENOMIC MEDICINE Potassium 4.1 3.5 - 5.0 mEq/L [facility] DEPARTMENT OF PATHOLOGY AND GENOMIC MEDICINE Chloride 103 98 - 112 mEq/L [facility] DEPARTMENT OF PATHOLOGY AND GENOMIC MEDICINE CO2 25 24 - 31 mEq/L [facility] DEPARTMENT OF PATHOLOGY AND GENOMIC MEDICINE Anion gap 12@ANIO 7 - 15 mEq/L [facility] DEPARTMENT OF PATHOLOGY AND GENOMIC MEDICINE BUN 16 8 - 23 mg/dL [facility] DEPARTMENT OF PATHOLOGY AND GENOMIC MEDICINE Creatinine 1.0 (H) 0.5 - 0.9 mg/dL [facility] DEPARTMENT OF PATHOLOGY AND GENOMIC MEDICINE Glucose 96 65 - 99 mg/dL [facility] DEPARTMENT OF PATHOLOGY AND GENOMIC MEDICINE Calcium 9.8 8.8 - 10.2 mg/dL [facility] DEPARTMENT OF PATHOLOGY AND GENOMIC MEDICINE Protein 8.8 (H) 6.3 - 8.3 g/dL [facility] DEPARTMENT OF Comment: PATHOLOGY AND GENOMIC [place] 4.6-7.0 g/dL MEDICINE 1 week 4.4-7.6 g/dL 7 months-1year5.1-7.3 g/dL 1-2 years5.6-7.5 g/dL >3 years6.0-8.0 g/dL 18-150 6.3-8.3 g/dL Albumin 3.4 (L) 3.5 - 5.0 g/dL [facility] DEPARTMENT OF PATHOLOGY AND GENOMIC MEDICINE A/G ratio 0.6 (L) 0.7 - 3.8 [facility] DEPARTMENT OF PATHOLOGY AND GENOMIC MEDICINE Alkaline phosphatase 176 (H) 35 - 104 U/L [facility] DEPARTMENT OF PATHOLOGY AND GENOMIC MEDICINE AST 34 10 - 35 U/L [facility] DEPARTMENT OF PATHOLOGY AND GENOMIC MEDICINE ALT 20 5 - 50 U/L [facility] DEPARTMENT OF PATHOLOGY AND GENOMIC MEDICINE Total bilirubin 0.6 0.0 - 1.2 mg/dL [facility] DEPARTMENT OF PATHOLOGY AND GENOMIC MEDICINE Specimen Plasma specimen Performing Organization Address City/State/Zipcode Phone Number [facility] DEPARTMENT OF PATHOLOGY AND [address] [place] [address] [facility] CT Chest W Contrast Abdomen W Contrast [...] calculi some of which could be new. [facility]-[id number] . Procedure Note Hm Interface, Radiology Results [...] calculi some of which could be new. [facility]-[id number] . Performing Organization Address City/[facility]/Zipcode Phone Number [facility] [address] [place] [address] Estimated GFR (09/10/2017 9:48 AM CDT) GFR Non Af Amer 62 mL/min/1.73 m2 [facility] DEPARTMENT OF PATHOLOGY AND GENOMIC MEDICINE GFR Af Amer 75 mL/min/1.73 m2 [facility] DEPARTMENT OF Comment: PATHOLOGY AND GENOMIC Chronic [...] and Americans. Specimen Blood Performing Organization Address City/[facility]/Zipcode Phone Number [facility] DEPARTMENT OF PATHOLOGY AND [address] [place] [address] [employer] POC creatinine (09/10/2017 9:48 AM CDT) POC creatinine 0.9 0.5 - 0.9 mg/dl [facility] DEPARTMENT OF PATHOLOGY Comment: AND [employer] MEDICINE Meter ID: [id number] Manager Scientific: Micah Sheikh Specimen Blood Performing Organization Address City/State/Zipcode Phone Number [facility] DEPARTMENT OF PATHOLOGY AND [address] [place] [address] GENOMIC MEDICINE CBC hemogram (09/10/2017 9:01 AM CDT) WBC 5.28 4.50 - 11.00 k/uL [facility] DEPARTMENT OF PATHOLOGY AND GENOMIC MEDICINE RBC 5.06 4.20 - 5.50 m/uL [facility] DEPARTMENT OF PATHOLOGY AND GENOMIC MEDICINE HGB 12.9 12.0 - 16.0 g/dL [facility] DEPARTMENT OF PATHOLOGY AND GENOMIC MEDICINE HCT 41.7 37.0 - 47.0 % [facility] DEPARTMENT OF PATHOLOGY AND GENOMIC MEDICINE MCV 82.4 82.0 - 100.0 fL [facility] DEPARTMENT OF PATHOLOGY AND GENOMIC MEDICINE MCH 25.5 (L) 27.0 - 34.0 pg [facility] DEPARTMENT OF PATHOLOGY AND GENOMIC MEDICINE MCHC 30.9 (L) 31.0 - 37.0 g/dL [facility] DEPARTMENT OF PATHOLOGY AND GENOMIC MEDICINE RDW - SD 48.3 37.0 - 55.0 fL [facility] DEPARTMENT OF PATHOLOGY AND GENOMIC MEDICINE MPV 11.2 8.8 - 13.2 fL [facility] DEPARTMENT OF PATHOLOGY AND GENOMIC MEDICINE Platelet count 140 (L) 150 - 400 k/uL [facility] DEPARTMENT OF PATHOLOGY AND GENOMIC MEDICINE Nucleated RBC 0.00 /100 WBC [facility] DEPARTMENT OF PATHOLOGY AND GENOMIC MEDICINE Specimen Blood Performing Organization Address City/State/Zipcode Phone Number [facility] DEPARTMENT OF PATHOLOGY AND [address] [place] [address] [employer] MED[facility] after 07/08/2017 Insurance Payer Benefit Plan / Group Subscriber ID Type Phone Address MEDICARE MEDICARE PART A AND B xxxxxxxxxx Medicare [place], [place] [employer] AND xxxxxxxxx Commercial CASUALTY CASUALTY Advance Directives Patient has advance care planning documents on file. For more information, please contact:Eros Helton[address] [place] [address]
--- NOTE | 2018-07-09 20:23 | ER ---
Nurse's Notes [facility] Name: Vera Parker Age: 73 yrs Sex: Female : 1945 Arrival Date: 07/09/2018 Time: 19:25 Bed 4 Private MD: Ximena Lopez H Diagnosis: Diarrhea, unspecified;Enterocolitis due to Clostridium difficile-possible Presentation: 07/09 19:32 Presenting complaint: Patient states: "I've been taking 2 antibiotics and I've had aj1 diarrhea for the past couple of days" Patient states that she was taking the antibiotics "for some cysts" Patient reports 4 episodes of diarrhea today. Transition of care: patient was not received from another setting of care. Onset of symptoms was July 09, 2018. Risk Assessment: Do you want to hurt yourself or someone else? Patient reports no desire to harm self or others. Initial Sepsis Screen: Does the patient meet any 2 criteria? HR > 90 bpm. No. Patient's initial sepsis screen is negative. Does the patient have a suspected source of infection? No. Patient's initial sepsis screen is negative. Care prior to arrival: None. 19:32 Method Of Arrival: Ambulatory aj1 19:32 Acuity: YEYO 3 aj1 Triage Assessment: 19:34 General: Appears in no apparent distress. comfortable, Behavior is calm, cooperative, aj1 appropriate for age. Pain: Denies pain. Neuro: Level of Consciousness is awake, alert, obeys commands. Cardiovascular: Patient's skin is warm and dry. Respiratory: Airway is patent Respiratory effort is even, unlabored, Respiratory pattern is regular, symmetrical. GI: Reports diarrhea. Historical: - Allergies: 19:34 Benadryl (Hallucinations); aj1 - Home Meds: 19:34 None [Active]; aj1 - PMHx: 19:34 Chemotherapy started December,; esophageal cancer; Hypertension; Radiation tx aj1 completed January 25, 2016; - Immunization history:: Flu vaccine is not up to date. - Social history:: Smoking status: Patient/guardian denies using tobacco. - Ebola Screening: : Patient denies travel to an Ebola-affected area in the 21 days before illness onset. - Family history:: not pertinent. Screenin:57 Abuse screen: Denies threats or abuse. Denies injuries from another. Nutritional tl1 screening: No deficits noted. Tuberculosis screening: No symptoms or risk factors identified. Fall Risk None identified. Assessment: 20:57 General: Appears in no apparent distress. Behavior is calm, cooperative, appropriate tl1 for age. Pain: Denies pain. Neuro: No deficits noted. Cardiovascular: Denies chest pain. Respiratory: Airway is patent Trachea midline Respiratory effort is even, unlabored, Respiratory pattern is regular, Breath sounds are clear bilaterally. GI: Abdomen is non-distended, Bowel sounds present X 4 quads. Abd is soft and non tender X 4 quads. Reports diarrhea. : No signs and/or symptoms were reported regarding the genitourinary system. EENT: No signs and/or symptoms were reported regarding the EENT system. Derm: No signs and/or symptoms reported regarding the dermatologic system. Vital Signs: 19:35 BP 144 / 93; Pulse 103; Resp 20; Temp 98.4; Pulse Ox 98% on R/A; Weight 56.25 kg (R); aj1 Height 5 ft. 3 in. (160.02 cm) (R); Pain 0/10; 20:59 BP 139 / 87; Pulse 97; Resp 17; Temp 98.4; Pulse Ox 99% ; Pain 0/10; tl1 19:35 Body Mass Index 21.97 (56.25 kg, 160.02 cm) aj1 ED Course: 19:25 Patient arrived in ED. am2 19:25 Ximena Lopez DO is Private Physician. am2 19:34 Triage completed. aj1 19:35 Arm band placed on Patient placed in waiting room, Patient notified of wait time. aj1 19:35 Patient has correct armband on for positive identification. Bed in low position. Call tl1 light in reach. Side rails up X 1. Adult w/ patient. 19:54 Fortunato Jett MD is Attending Physician. ramona 20:21 Ximena Lopez DO is Referral Physician. ramona 20:21 Shmuel Carty MD is Referral Physician. ramona 20:22 Judah Cyr MD is Referral Physician. ramona 20:56 Ruth Cage, BRADEN is Primary Nurse. tl1 20:59 No provider procedures requiring assistance completed. Patient did not have IV access tl1 during this emergency room visit. Administered Medications: 20:38 Drug: Flagyl 500 mg Route: PO; tl1 21:01 Follow up: Response: No adverse reaction; No change in condition tl1 Outcome: 20:23 Discharge ordered by . ramona 20:59 Discharged to home ambulatory, with family. tl1 20:59 Condition: good 20:59 Discharge instructions given to patient, family, Instructed on discharge instructions, follow up and referral plans. medication usage, Demonstrated understanding of instructions, follow-up care, medications, Prescriptions given X 1. 21:01 Patient left the ED. tl1 Signatures: Juana Kaur, RN RN aj1 Fortunato Jett MD MD cha Lasagna, Tonya RN RN tl1 Pau Rudolph
--- NOTE | 2018-07-09 20:23 | EDPHYS ---
Physician Documentation [facility] Name: Vera Parker Age: 73 yrs Sex: Female : 1945 Arrival Date: 07/09/2018 Time: 19:25 Bed 4 Private MD: Ximena Lopez H ED Physician Fortunato Jett HPI: 07/09 20:18 This 73 yrs old Female presents to ER via Ambulatory with complaints of ramona Diarrhea. 20:18 The patient presents to the emergency department with diarrhea, 4 times today. Onset: ramona The symptoms/episode began/occurred 2 day(s) ago. Possible causes: antibiotics, bactrim, clindamycin. The symptoms are aggravated by nothing. The symptoms are alleviated by nothing. Associated signs and symptoms: The patient has no apparent associated signs or symptoms. Severity of symptoms: At their worst the symptoms were mild in the emergency department the symptoms are unchanged. The patient has not experienced similar symptoms in the past. Historical: - Allergies: 19:34 Benadryl (Hallucinations); aj1 - Home Meds: 19:34 None [Active]; aj1 - PMHx: 19:34 Chemotherapy started December,; esophageal cancer; Hypertension; Radiation tx aj1 completed January 25, 2016; - Immunization history:: Flu vaccine is not up to date. - Social history:: Smoking status: Patient/guardian denies using tobacco. - Ebola Screening: : Patient denies travel to an Ebola-affected area in the 21 days before illness onset. - Family history:: not pertinent. ROS: 20:18 Constitutional: Negative for fever, chills, and weight loss, Eyes: Negative for injury, ramona pain, redness, and discharge, ENT: Negative for injury, pain, and discharge, Neck: Negative for injury, pain, and swelling, Cardiovascular: Negative for chest pain, palpitations, and edema, Respiratory: Negative for shortness of breath, cough, wheezing, and pleuritic chest pain, Back: Negative for injury and pain, : Negative for injury, bleeding, discharge, and swelling, MS/Extremity: Negative for injury and deformity, Skin: Negative for injury, rash, and discoloration, Neuro: Negative for headache, weakness, numbness, tingling, and seizure, Psych: Negative for depression, anxiety, suicide ideation, homicidal ideation, and hallucinations, Allergy/Immunology: Negative for hives, rash, and allergies, Endocrine: Negative for neck swelling, polydipsia, polyuria, polyphagia, and marked weight changes, Hematologic/Lymphatic: Negative for swollen nodes, abnormal bleeding, and unusual bruising. 20:18 Abdomen/GI: Positive for diarrhea. Exam: 20:18 Constitutional: This is a well developed, well nourished patient who is awake, alert, ramona and in no acute distress. Head/Face: Normocephalic, atraumatic. Eyes: Pupils equal round and reactive to light, extra-ocular motions intact. Lids and lashes normal. Conjunctiva and sclera are non-icteric and not injected. Cornea within normal limits. Periorbital areas with no swelling, redness, or edema. ENT: Nares patent. No nasal discharge, no septal abnormalities noted. Tympanic membranes are normal and external auditory canals are clear. Oropharynx with no redness, swelling, or masses, exudates, or evidence of obstruction, uvula midline. Mucous membranes moist. Neck: Trachea midline, no thyromegaly or masses palpated, and no cervical lymphadenopathy. Supple, full range of motion without nuchal rigidity, or vertebral point tenderness. No Meningismus. Chest/axilla: Normal chest wall appearance and motion. Nontender with no deformity. No lesions are appreciated. Cardiovascular: Regular rate and rhythm with a normal S1 and S2. No gallops, murmurs, or rubs. Normal PMI, no JVD. No pulse deficits. Respiratory: Lungs have equal breath sounds bilaterally, clear to auscultation and percussion. No rales, rhonchi or wheezes noted. No increased work of breathing, no retractions or nasal flaring. Abdomen/GI: Soft, non-tender, with normal bowel sounds. No distension or tympany. No guarding or rebound. No evidence of tenderness throughout. Back: No spinal tenderness. No costovertebral tenderness. Full range of motion. Skin: Warm, dry with normal turgor. Normal color with no rashes, no lesions, and no evidence of cellulitis. MS/ Extremity: Pulses equal, no cyanosis. Neurovascular intact. Full, normal range of motion. Neuro: Awake and alert, GCS 15, oriented to person, place, time, and situation. Cranial nerves II-XII grossly intact. Motor strength 5/5 in all extremities. Sensory grossly intact. Cerebellar exam normal. Normal gait. Psych: Awake, alert, with orientation to person, place and time. Behavior, mood, and affect are within normal limits. Vital Signs: 19:35 BP 144 / 93; Pulse 103; Resp 20; Temp 98.4; Pulse Ox 98% on R/A; Weight 56.25 kg (R); aj1 Height 5 ft. 3 in. (160.02 cm) (R); Pain 0/10; 20:59 BP 139 / 87; Pulse 97; Resp 17; Temp 98.4; Pulse Ox 99% ; Pain 0/10; tl1 19:35 Body Mass Index 21.97 (56.25 kg, 160.02 cm) [facility] MDM: 19:54 Patient medically screened. [facility] 20:20 Data reviewed: vital signs, nurses notes, lab test result(s). [facility] Administered Medications: 20:38 Drug: Flagyl 500 mg Route: PO; tl1 21:01 Follow up: Response: No adverse reaction; No change in condition 1 Disposition: 07/09/18 20:23 Discharged to Home. Impression: Diarrhea, unspecified, Enterocolitis due to Clostridium difficile - possible. - Condition is Stable. - Discharge Instructions: Food Choices to Help Relieve Diarrhea, Adult, Diarrhea, Adult, Clostridium Difficile Infection, Antibiotic Medicine, Adult, Diarrhea, Adult, [id number], Clostridium Difficile Infection, [id number]. - Prescriptions for Flagyl 250 mg Oral Tablet - take 1 tablet by ORAL route every 8 hours for 7 days; 21 tablet. - Medication Reconciliation Form, Thank You Letter, Antibiotic Education, Prescription Opioid Use form. - Follow up: Ximena Lopez DO; When: 2 - 3 days; Reason: Recheck today's complaints, Continuance of care, Re-evaluation by your physician. Follow up: Shmuel Carty MD; When: 2 - 3 days; Reason: Recheck today's complaints, Re-evaluation by your physician. Follow up: Judah Cyr MD; When: 2 - 3 days; Reason: Recheck today's complaints, Re-evaluation by your physician. - Problem is new. - Symptoms have improved. Signatures: Dispatcher [employer] EDJuana Cr RN RN aj1 Fortunato Jett MD MD cha Lasagna, Tonya, RN RN tl1 Corrections: (The following items were deleted from the chart) 21:01 20:23 07/09/2018 20:23 Discharged to Home. Impression: Diarrhea, unspecified; tl1 Enterocolitis due to Clostridium difficile - possible. Condition is Stable. Forms are Medication Reconciliation Form, Thank You Letter, Antibiotic Education, Prescription Opioid Use. Follow up: Ximena Lopez; When: 2 - 3 days; Reason: Recheck today's complaints, Continuance of care, Re-evaluation by your physician. Follow up: Shmuel Carty; When: 2 - 3 days; Reason: Recheck today's complaints, Re-evaluation by your physician. Follow up: Judah Cyr; When: 2 - 3 days; Reason: Recheck today's complaints, Re-evaluation by your physician. Problem is new. Symptoms have improved. ramona
[2018-07-09] MEDS ORDERED: metroNIDAZOLE 500 MG TABLET ONE (20:43)
[2018-07-09 21:11] VITALS: TEMP 98.4
[2018-07-09 21:15] VITALS: BP 139/87; O2SAT 99
== END 2018-07-09 21:01 | disposition home or self-care (01) ==
LOC: ER 19:20
DX: A04.72 Enterocolitis due to Clostridium difficile, not specified as recurrent (principal); C15.9 Malignant neoplasm of esophagus, unspecified; I10 Essential (primary) hypertension; Z88.8 Allergy status to other drugs, medicaments and biological substances
CPT/HCPCS: 99283